=== PATIENT | male | born 1940 | race Caucasian/White ===

== ENCOUNTER 2017-01-18 07:33 | Emergency (ER) | payer MEDICARE, OTHER ==
[2017-01-18 07:55] VITALS: BP 144/81
== END 2017-01-18 08:15 | disposition other institution (70) ==
LOC: LB.ED 07:33
DX: M79.1 Myalgia (principal); Z53.21 Procedure and treatment not carried out due to patient leaving prior to being seen by health care provider
CPT/HCPCS: 99283

== ENCOUNTER 2017-02-11 07:05 | Day surgery (SDC) | payer MEDICARE, OTHER ==
[~2017-02-11 07:05] MED LIST: Metoclopramide 10 MG/2 ML SDV IV PRN; Sodium Chloride 0.9% 10 ML Syringe FLUSH PRN
[2017-02-11 13:53] VITALS: BP 119/65
[2017-02-11] MEDS ORDERED: Sodium Chloride 0.9% 1,000 ML IV SCH (14:15)
== END 2017-02-11 10:45 | disposition home or self-care (01) ==
LOC: LB.SDS 07:05
PROVIDERS: ATTEND Surgery
DX: Z53.8 Procedure and treatment not carried out for other reasons (principal)
CPT/HCPCS: J7040

== ENCOUNTER 2017-04-26 06:57 | Day surgery (SDC) | payer MEDICARE, OTHER ==
[~2017-04-26 06:57] MED LIST changes: +FLU Vacc QS 2017-18 (36mos UP)/PF 60 MCG/0.5 ML Syringe IM ONE
[2017-04-26] MEDS ORDERED: Sodium Chloride 0.9% 1,000 ML IV SCH (09:00)
[2017-04-26] MEDS ORDERED: Propofol 200 MG/20 ML SDV ONE (09:10)
[2017-04-26 09:42] VITALS: BP 115/73
--- NOTE | 2017-04-26 13:55 | OR ---
DATE OF OPERATION: 04/26/2017 PREOPERATIVE DIAGNOSIS: Colon cancer screening. POSTOPERATIVE DIAGNOSIS: Colon cancer screening. PROCEDURE: Colonoscopy. ANESTHESIA: MAC. ESTIMATED BLOOD LOSS: None. COMPLICATIONS: None. INDICATIONS FOR PROCEDURE: The patient is a 76-year-old male, who was here today for routine colon cancer screening. Unknown family history. No change in bowel habits. Last colonoscopy was approximately ten years ago. Per patient, there were some polyps at that time. The patient otherwise has no complaint. DESCRIPTION OF PROCEDURE: Informed consent was obtained from the patient. The patient was taken to the operating room and placed on the tablet in left lateral decubitus position. Monitored anesthesia care was applied. On digital rectal exam, no mass was palpated. Good rectal tone. Colonoscope was then advanced through the anus and directed towards the cecum. Some abdominal pressure was utilized. I did reach the cecum identified by the ileocecal valve. Colonoscope was slowly withdrawn. No polyps. No masses. No AV malformations. No areas of ischemia or informations were identified. The patient did have severe diverticulosis in the descending and sigmoid colon. Retroflexion was performed in the rectum and was also unremarkable. Colonoscope was then removed. FINDINGS: Sever sigmoid and descending colon diverticulosis. RECOMMENDATIONS: No polyps identified on screening colonoscopy at this time. Due to age, would not recommend further screening colonoscopies in the future. GREG /[id number]
== END 2017-04-26 10:50 | disposition home or self-care (01) ==
LOC: LB.SDS 06:57
PROVIDERS: ATTEND Surgery
DX: Z12.11 Encounter for screening for malignant neoplasm of colon (principal); K57.30 Diverticulosis of large intestine without perforation or abscess without bleeding; Z79.82 Long term (current) use of aspirin; Z79.899 Other long term (current) drug therapy
CPT/HCPCS: 82962; G0121; J2704; J7040

== ENCOUNTER 2019-08-20 06:04 | Emergency (ER) | payer MEDICARE, OTHER ==
[2019-08-20 06:20] VITALS: BP 189/108; PULSE 63
[2019-08-20] MEDS ORDERED: Sulfamethoxazole/Trimethoprim 800-160 MG Tab ONE (06:30)
== END 2019-08-20 07:25 | disposition home or self-care (01) ==
LOC: LB.ED 06:04
DX: R10.32 Left lower quadrant pain (principal); I25.10 Atherosclerotic heart disease of native coronary artery without angina pectoris; I10 Essential (primary) hypertension; I48.91 Unspecified atrial fibrillation; Z79.899 Other long term (current) drug therapy
CPT/HCPCS: 36415; 80053; 81001; 85025; 99283; 99284; A9270-GY

== ENCOUNTER 2022-07-08 19:07 | Emergency (ER) | payer MEDICARE ==
[2022-07-08] MEDS: Albuterol/Ipratropium 3.0-0.5 MG/3 ML Neb Soln NEB ONE ×2 (19:08→19:30)
[2022-07-08] MEDS ORDERED: methylPREDNISolone Sodium Succinate 125 MG/2 ML SDV IVPUSH ONE (19:23)
[2022-07-08] MEDS ORDERED: methylPREDNISolone Sodium Succinate 125 MG/2 ML SDV ONE (19:42)
[2022-07-08] MEDS ORDERED: Furosemide 40 MG/4 ML VIAL IVPUSH ONE (19:58)
[2022-07-08 20:00] LABS: TROPONIN I HIGH SENSITIVITY 29.9 pg/ml (<=60.4)
[2022-07-08] MEDS ORDERED: Furosemide 40 MG/4 ML VIAL ONE (20:09)
[2022-07-08] MEDS ORDERED: Benzonatate 100 MG Cap ONE (20:15)
[2022-07-08] MEDS ORDERED: predniSONE 10 MG Tab ONE (20:15)
[2022-07-08 21:32] VITALS: BP 169/84; PULSE 78
== END 2022-07-08 20:25 | disposition home or self-care (01) ==
LOC: LB.ED 19:07
DX: U07.1 COVID-19 (principal); I48.91 Unspecified atrial fibrillation; E78.00 Pure hypercholesterolemia, unspecified; I10 Essential (primary) hypertension; E11.9 Type 2 diabetes mellitus without complications; K21.9 Gastro-esophageal reflux disease without esophagitis; Z79.02 Long term (current) use of antithrombotics/antiplatelets; Z79.899 Other long term (current) drug therapy
CPT/HCPCS: 36415; 71045; 80053; 83605; 83880; 84484; 85025; 85379; 87804; 87804-59; 93005; 94640; 96374; 96375; 99285-25; A9270-GY; J1940; J2930; J7512; J7620; U0002

== ENCOUNTER 2022-07-11 11:37 | Inpatient (IN) | payer MEDICARE ==
[2022-07-11] MEDS ORDERED: Albuterol/Ipratropium 3.0-0.5 MG/3 ML Neb Soln NEB PRN (11:38)
[2022-07-11] MEDS ORDERED: Dexamethasone 4 MG/ML SDV IVPUSH ONE (11:39)
[2022-07-11] MEDS ORDERED: REMDESIVIR 200 MG in Sodium Chloride 0.9% 250 ML IV ONE (11:40)
[2022-07-11] MEDS ORDERED: Albuterol/Ipratropium 3.0-0.5 MG/3 ML Neb Soln NEB ONE (12:10)
[2022-07-11] MEDS ORDERED: Sodium Chloride 0.9% 1,000 ML IV ONE (12:26)
[2022-07-11] MEDS ORDERED: Benzonatate 100 MG Cap PO ONE (12:40)
[2022-07-11] MEDS ORDERED: Apixaban 5 MG Tab PO SCH (13:30)
[2022-07-11] MEDS ORDERED: Codeine/guaiFENesin 10-100 MG/5 ML Syrup 5 ML Cup PO PRN (15:31)
[2022-07-11] MEDS ORDERED: Simvastatin 40 MG Tab PO SCH (16:00)
[2022-07-11] MEDS ORDERED: metFORMIN 500 MG Tab PO SCH (20:00)
[2022-07-11] MEDS ORDERED: Pravastatin 20 MG Tab PO SCH (20:00)
[2022-07-11] MEDS ORDERED: Benzonatate 100 MG Cap PO PRN (22:08)
[2022-07-11] MEDS: Albuterol/Ipratropium 3.0-0.5 MG/3 ML Neb Soln NEB SCH (22:45)
[2022-07-11] MEDS: Apixaban 5 MG Tab PO SCH (22:47)
[2022-07-11] MEDS: Losartan 50 MG Tab PO SCH (22:47)
[2022-07-11] MEDS: glipiZIDE 5 MG Tab PO SCH (22:48)
[2022-07-11] MEDS: Metoprolol Succinate 25 MG Tab.ER PO SCH (22:48)
[2022-07-11] MEDS: Simvastatin 40 MG Tab PO SCH (22:48)
[2022-07-11] MEDS: Clopidogrel 75 MG Tab PO SCH (22:49)
[2022-07-12] MEDS: Albuterol/Ipratropium 3.0-0.5 MG/3 ML Neb Soln NEB SCH ×3 (03:44→15:56)
[2022-07-12] MEDS: Pantoprazole 40 MG Tab.CR PO SCH (07:26)
[2022-07-12] MEDS: Apixaban 5 MG Tab PO SCH ×2 (07:27→20:33)
[2022-07-12] MEDS ORDERED: Non-Formulary Medication 1 Each (Omeprazole [Omeprazole] 40 MG Cap.Cr) PO SCH (08:00)
[2022-07-12] MEDS ORDERED: Metoprolol Succinate 100 MG Tab.ER PO SCH (08:00)
[2022-07-12] MEDS ORDERED: Non-Formulary Medication 1 Each (Magnesium Oxide [Magnesium] 500 MG Capsule) PO SCH (08:00)
[2022-07-12] MEDS ORDERED: Tamsulosin 0.4 MG Cap.ER PO SCH ×2 (08:00→16:00)
[2022-07-12] MEDS ORDERED: Clopidogrel 75 MG Tab PO SCH (08:00)
[2022-07-12] MEDS ORDERED: Hydrochlorothiazide 25 MG Tab PO SCH (08:00)
[2022-07-12] MEDS: REMDESIVIR 100 MG in Sodium Chloride 0.9% 100 ML IV SCH (11:41)
[2022-07-12] MEDS: Dexamethasone 4 MG Tab PO SCH (11:48)
[2022-07-12] MEDS: Losartan 50 MG Tab PO SCH (15:57)
[2022-07-12] MEDS: glipiZIDE 5 MG Tab PO SCH (15:57)
[2022-07-12] MEDS: Metoprolol Succinate 25 MG Tab.ER PO SCH (15:57)
[2022-07-12] MEDS: Clopidogrel 75 MG Tab PO SCH (15:58)
[2022-07-12] MEDS: Simvastatin 40 MG Tab PO SCH (15:58)
[2022-07-13] MEDS: Albuterol/Ipratropium 3.0-0.5 MG/3 ML Neb Soln NEB SCH ×2 (00:41→04:37)
[2022-07-13] MEDS: Apixaban 5 MG Tab PO SCH (08:19)
[2022-07-13] MEDS: Pantoprazole 40 MG Tab.CR PO SCH (08:19)
[2022-07-13] MEDS: Dexamethasone 4 MG Tab PO SCH (08:19)
[2022-07-13] MEDS: REMDESIVIR 100 MG in Sodium Chloride 0.9% 100 ML IV SCH (08:38)
[2022-07-13 12:07] VITALS: BP 192/76; PULSE 58
== END 2022-07-13 11:05 | disposition home or self-care (01) | DRG 179 ==
LOC: LB.ED 11:37 → LB.MS 18:10
PROVIDERS: ADMIT Physician Assistant; ATTEND Physician Assistant
PROC: XW033E5 Introduction of Remdesivir Anti-infective into Peripheral Vein, Percutaneous Approach, New Technology Group 5 (ICD-10-PCS; principal; 2022-07-11)
PROC: 3E0333Z Introduction of Anti-inflammatory into Peripheral Vein, Percutaneous Approach (ICD-10-PCS; 2022-07-11)
PROC: 3E0DX3Z Introduction of Anti-inflammatory into Mouth and Pharynx, External Approach (ICD-10-PCS; 2022-07-12)
DX: U07.1 COVID-19 (principal); Z87.891 Personal history of nicotine dependence; E78.00 Pure hypercholesterolemia, unspecified; K21.9 Gastro-esophageal reflux disease without esophagitis; I10 Essential (primary) hypertension; R06.03 Acute respiratory distress; K59.09 Other constipation; M54.9 Dorsalgia, unspecified; Z79.01 Long term (current) use of anticoagulants; Z79.84 Long term (current) use of oral hypoglycemic drugs; G89.29 Other chronic pain; N40.0 Benign prostatic hyperplasia without lower urinary tract symptoms; Z90.49 Acquired absence of other specified parts of digestive tract; I48.91 Unspecified atrial fibrillation; E11.9 Type 2 diabetes mellitus without complications; Z95.5 Presence of coronary angioplasty implant and graft; Z79.02 Long term (current) use of antithrombotics/antiplatelets; Z79.899 Other long term (current) drug therapy
CPT/HCPCS: 36415; 71045; 80048; 80053; 83605; 83880; 84484; 85025; 85379; 93005; A9270-GY; J1100; J7050; J7620; J8540

== ENCOUNTER 2022-07-15 16:34 | Observation (INO) | payer MEDICARE ==
[2022-07-15] MEDS ORDERED: Dexamethasone 4 MG/ML SDV IVPUSH ONE (16:50)
[2022-07-15] MEDS ORDERED: Albuterol/Ipratropium 3.0-0.5 MG/3 ML Neb Soln ONE ×2 (16:54→17:11)
[2022-07-15] MEDS ORDERED: Dexamethasone 4 MG/ML SDV ONE (17:12)
[2022-07-15] MEDS ORDERED: Benzonatate 100 MG Cap ONE (17:12)
[2022-07-15] MEDS ORDERED: Benzonatate 100 MG Cap PO ONE (17:12)
[2022-07-15] MEDS ORDERED: Albuterol/Ipratropium 3.0-0.5 MG/3 ML Neb Soln NEB ONE (17:15)
[2022-07-15] MEDS ORDERED: Morphine 2 MG/ML SYRINGE IVPUSH ONE (17:24)
[2022-07-15] MEDS ORDERED: Morphine 2 MG/ML SYRINGE ONE (17:34)
[2022-07-15] MEDS ORDERED: Piperacillin/Tazobactam 3.375 GM in Sodium Chloride 0.9% 100 ML IV ONE (18:00)
[2022-07-15] MEDS ORDERED: Sodium Chloride 0.9% 1,000 ML IV ONE (18:02)
[2022-07-15] MEDS ORDERED: Non-Formulary Medication 1 Each (Apixaban [Eliquis] 5 MG Tablet) PO SCH (20:00)
[2022-07-15] MEDS ORDERED: guaiFENesin/Dextromethorphan 100-10 MG/5 ML Soln 10 ML Cup PO PRN (20:54)
[2022-07-15] MEDS: Sodium Chloride 0.9% 1,000 ML IV SCH (21:01)
[2022-07-15] MEDS ORDERED: LOSARTAN 100 MG PO SCH (21:15)
[2022-07-15] MEDS ORDERED: Metoprolol Succinate 25 MG Tab.ER *PT OWN MED PO SCH (21:30)
[2022-07-15] MEDS ORDERED: GLIPIZIDE 5 MG PO SCH (21:30)
[2022-07-15] MEDS ORDERED: Clopidogrel 75 MG Tab *PT OWN MED PO SCH (21:30)
[2022-07-15] MEDS ORDERED: Tamsulosin 0.4 MG Cap.ER *PT OWN MED PO SCH (21:30)
[2022-07-15] MEDS ORDERED: Simvastatin 40 MG Tab *PT OWN MED PO SCH (21:30)
[2022-07-15] MEDS ORDERED: Albuterol 8 GM Inhaler INH SCH (22:30)
[2022-07-15] MEDS ORDERED: 50% Dextrose in Water 50 ML Syringe IVPUSH PRN (22:33)
[2022-07-15] MEDS ORDERED: Glucagon,Human Recombinant 1 MG Vial IM PRN (22:33)
[2022-07-15] MEDS ORDERED: Insulin Aspart 100 Units/ML 3 ML Pen SUBCUT SCH (22:45)
[2022-07-16] MEDS ORDERED: Albuterol 8 GM Inhaler INH SCH
[2022-07-16] MEDS: Albuterol 0.083% 2.5 MG/3 ML Neb Soln INH SCH ×4 (00:07→12:40)
[2022-07-16] MEDS: Sodium Chloride 0.9% 1,000 ML IV SCH (04:39)
[2022-07-16] MEDS ORDERED: Dexamethasone 4 MG/ML 5 ML MDV IVPUSH SCH (09:00)
[2022-07-16] MEDS ORDERED: Levofloxacin/Dextrose 5%-Water 750 MG in Levofloxacin/Dextrose 5%-Water 150 ML IV SCH (09:00)
[2022-07-16] MEDS ORDERED: Levofloxacin/Dextrose 5%-Water 150 ML IV SCH (10:43)
[2022-07-16] MEDS ORDERED: 50% Dextrose in Water 50 ML Syringe IVPUSH PRN (11:00)
[2022-07-16] MEDS ORDERED: Lactated Ringers 1,000 ML IV ONE (11:00)
[2022-07-16] MEDS ORDERED: Glucagon,Human Recombinant 1 MG Vial IM PRN (11:00)
[2022-07-16] MEDS ORDERED: Insulin Aspart 100 Units/ML 3 ML Pen SUBCUT SCH ×2 (12:00)
[2022-07-16] MEDS ORDERED: Diltiazem 25 MG/5 ML SDV IVPUSH ONE (13:02)
[2022-07-16 14:24] VITALS: BP 144/86; PULSE 92
[2022-07-16] MEDS ORDERED: Tamsulosin 0.4 MG Cap.ER PO SCH (16:00)
[2022-07-16] MEDS ORDERED: Clopidogrel 75 MG Tab PO SCH (16:00)
[2022-07-16] MEDS ORDERED: Metoprolol Succinate 25 MG Tab.ER PO SCH (16:00)
[2022-07-16] MEDS ORDERED: CLOPIDOGREL BISULFATE 75 MG PO SCH (16:00)
[2022-07-16] MEDS ORDERED: Non-Formulary Medication 1 Each (Simvastatin [Zocor] 40 MG Tablet) PO SCH (16:00)
[2022-07-16] MEDS ORDERED: GLIPIZIDE 5 MG PO SCH (16:00)
[2022-07-16] MEDS ORDERED: TAMSULOSIN HCL 0.4 MG PO SCH (16:00)
[2022-07-16] MEDS ORDERED: Simvastatin 40 MG Tab PO SCH (16:00)
[2022-07-16] MEDS ORDERED: Non-Formulary Medication 1 Each (Metoprolol Succinate [Toprol Xl] 25 MG Tab.Er) PO SCH (16:00)
[2022-07-16] MEDS ORDERED: Losartan 50 MG Tab PO SCH (16:00)
[2022-07-16] MEDS ORDERED: Non-Formulary Medication 1 Each (Losartan [Cozaar] 100 MG Tablet) PO SCH (16:00)
[2022-07-16] MEDS ORDERED: glipiZIDE 5 MG Tab PO SCH (16:00)
[2022-07-16] MEDS ORDERED: Apixaban 5 MG Tab PO SCH (20:00)
[2022-07-17] MEDS ORDERED: Levofloxacin/Dextrose 5%-Water 150 ML IV SCH (09:00)
== END 2022-07-16 14:00 | disposition left against medical advice (07) ==
LOC: LB.ED 16:34 → LB.MS 18:14
PROVIDERS: ADMIT Physician Assistant; ATTEND Physician Assistant
DX: J18.9 Pneumonia, unspecified organism (principal); R06.03 Acute respiratory distress; R06.02 Shortness of breath; R05.9 Cough, unspecified; I10 Essential (primary) hypertension; E78.00 Pure hypercholesterolemia, unspecified; I48.91 Unspecified atrial fibrillation; K21.9 Gastro-esophageal reflux disease without esophagitis; E11.9 Type 2 diabetes mellitus without complications; Z79.01 Long term (current) use of anticoagulants; Z79.899 Other long term (current) drug therapy; Z95.5 Presence of coronary angioplasty implant and graft; Z79.84 Long term (current) use of oral hypoglycemic drugs
CPT/HCPCS: 36415; 71045; 80053; 82947; 83605; 83880; 84484; 85025; 85379; 87040; 94640; 96361; 96365; 96375; 96376; 99285-25; A9270-GY; G0378; J1100; J1956; J2270; J2543; J3490; J7030; J7120; J7620

== ENCOUNTER 2023-05-25 12:49 | Emergency (ER) | payer MEDICARE ==
[2023-05-25 13:05] VITALS: BP 172/97; PULSE 121
[2023-05-25] MEDS ORDERED: Bacitracin Oint 1 GM U/D Packet TOP ONE (13:36)
== END 2023-05-25 13:39 | disposition home or self-care (01) ==
LOC: LB.ED 12:49
DX: S01.01XA Laceration without foreign body of scalp, initial encounter (principal); I10 Essential (primary) hypertension; E11.9 Type 2 diabetes mellitus without complications; E78.00 Pure hypercholesterolemia, unspecified; Z79.01 Long term (current) use of anticoagulants; Z79.899 Other long term (current) drug therapy; W01.10XA Fall on same level from slipping, tripping and stumbling with subsequent striking against unspecified object, initial encounter
CPT/HCPCS: 12001; 99282